=== PATIENT | female | born 1950 | race Caucasian/White ===

== ENCOUNTER 2017-08-03 06:36 | Inpatient (IN) ==
[~2017-08-03 06:36] MED LIST: ACETAMINOPHEN 500 MG TABLET PO ONE; DEXAMETHASONE 4 MG/ML INJECTION IVP ONE; FAMOTIDINE PB 20 MG/50 ML BAG IV ONE; LIDOCAINE 1% (10mg/ml) 2mL INJ PF SDV ID ONE; MELOXICAM 15 MG TABLET PO ONE; METOCLOPRAMIDE 10mg/2ml INJECTION IVP ONE; NOZIN NASAL SWAB NAS ONE; ONDANSETRON 4 MG/2 ML INJECTION IVP ONE; TRANEXAMIC ACID 1,000 MG in NS 100 ML IV ONE
[2017-08-03 06:50] VITALS: BMI 32.1
[2017-08-03] MEDS ORDERED: TRANEXAMIC ACID 1,000 MG in NS 100 ML IV ONE (07:00)
[2017-08-03] MEDS ORDERED: VANCOMYCIN 1,000 MG INJECTION ONE (07:18)
[2017-08-03] MEDS: LR 1,000 ML IV SCH ×2 (07:20→11:00)
[2017-08-03] MEDS ORDERED: EPINEPHrine PF 0.25 MG, BUPIVACAINE 0.25% PF 30 ML, MORPHINE SULFATE 15 MG, KETOROLAC I... OPSITE ONE (08:00)
--- NOTE | 2017-08-03 08:01 | Anesthesia Preoperative Report ---
Anesthesia Preoperative Record - Date and Time Date: 08/03/17 Preoperative Diagnosis: Lt IGNACIO M16.12 Proposed Procedure: left total hip NPO Since Date: 08/02/17 NPO Since Time: 23:00 Allergies/Adverse Reactions: Allergies Allergy/AdvReac Type Severity Reaction Status Date / Time azithromycin Allergy Unknown Hives Verified 08/03/17 07:14 ALMONDS Allergy Unknown throat Uncoded 08/03/17 07:14 swells BEER Allergy Unknown hives, Uncoded 08/03/17 07:14 throat swelling - Vital Signs Vital Signs: Temperature 97.9 F 08/03/17 06:50 Pulse Rate 80 08/03/17 06:50 Respiratory Rate 18 08/03/17 06:50 Blood Pressure 149/78 H 08/03/17 06:50 Pulse Oximetry 97 08/03/17 06:50 Height and Weight: Height 5 ft 4 in Weight 84.9 kg Body Mass Index 32.1 - Medications Inpatient Medications: Current Medications Cefazolin Sodium (Kefzol) 2 g IVP PREOP ONE Stop: 08/03/17 08:31 Epinephrine HCl 0.25 mg/Bupivacaine HCl 30 ml/Morphine Sulfate 15 mg/Ketorolac Tromethamine 60 mg/Sodium Chloride 65.25 mls @ 0 mls/hr OPSITE INTRAOP ONE; Per Protocol PRN Reason: Protocol Stop: 08/03/17 08:01 Lactated Ringer's (Lactated Ringers) 1,000 mls @ 50 mls/hr IV .Q20H ORLY Last Admin: 08/03/17 07:20 Dose: 50 mls/hr Sodium Chloride (Iv Flush) 10 - 80 ml IV PRN PRN PRN Reason: Flushing Home Medications: Home Medications Medication Instructions Recorded Confirmed Type Losartan/Hctz 100/12.5 [Hyzaar 1 tab PO DAILY #0 09/28/11 08/03/17 History 100/12.5] Pravastatin Sodium [Pravachol] 40 mg PO HS #0 09/28/11 08/03/17 History Aspirin [Aspirin EC] 81 mg PO DAILY #0 03/20/14 08/03/17 History Naproxen Sodium [Aleve] 440 mg PO DAILY #0 03/20/14 08/03/17 History Cardizem (diltiazem) 120 mg tablet 120 mg PO BID tab 06/19/17 08/03/17 History BuPROPion XL [Wellbutrin Xl] 300 mg PO DAILY 07/26/17 08/03/17 History EPINEPHrine Pen [Epipen] 1 dose INJ DAILY PRN 07/26/17 08/03/17 History Estradiol [Estradiol] 1 patch TD 2XW 07/26/17 08/03/17 History Fiberwell 5 gm PO DAILY 07/26/17 08/03/17 History Omeprazole [Prilosec] 1 cap PO ACB 07/26/17 08/03/17 History Is Patient on Beta Padmini?: No - Medical History Respiratory: DENIES: Asthma Cardiovascular: Reports: Hypertension DENIES: Arrhythmia, Coronary Artery Disease Gastrointestional: Reports: Gastroesophageal Reflux Disease (well controlled) Renal/Endocrine: DENIES: Diabetes Mellitus Type 2 Other History: DENIES: Anesthesia Reactions - Surgical History HEENT Surgeries: Reports: Nose Surgery (for fractured nose; septoplasty) GI Surgery/Treatments: Reports: Cholecystectomy, Colonoscopy (x2), EGD Reproductive Surgery/Treatment: Reports: Hysterectomy (vaginal) Anesthesia Reactions: None Hx Family Anesthesia Reaction: No History of Motion Sickness: No - Social History Smoking Status: Never smoker Hx Chewing Tobacco Use: No Second Hand Exposure: No Substance Use Type: does not use Alcohol Intake Frequency: does not drink - Pertinent Findings Laboratory: CBC and BMP 08/03/17 07:06 BMP 08/03/17 07:06 Sodium 143 Potassium 3.7 Chloride 109 H Carbon Dioxide 26 BUN 21.0 H Creatinine 0.9 Glucose 99 Calcium 9.0 EKG: Sinus Rhythm - Physical Exam Respiratory Exam: Present: lungs clear, bilateral breath sounds equal Cardiovascular Exam: Present: regular rate and rhythm - Airway Assessment Mallampati Score: II TMD: 3 Fingerbreadths Neck Extension: good Overall Assessment: no airway concerns - ASA ASA Score: 2 - Plan Anesthesia: General TIVA, Regional Block Regional/Trunk Block: Spinal - Discussion Discussion: Discussed risks/options/alternatives of anesthesia and questions answered. Patient consents. Nursing pain assessment noted. Present for Discussion: spouse Attestation Statement: Prior to the delivery of any anesthetic medication, I examined the patient, developed the plan, obtained the patient's consent and discussed the risk and benefits of the procedure with the patient/guardian. - Additional Information Seen by Anesthesia: Yes
[2017-08-03] MEDS ORDERED: MIDAZOLAM 2mg/2ml INJECTION ONE (08:11)
[2017-08-03] MEDS ORDERED: CEFAZOLIN 1 G INJECTION IVP ONE (08:30)
[2017-08-03] MEDS ORDERED: VANCOMYCIN 1,000 MG INJECTION IAR ONE (09:44)
[2017-08-03] MEDS ORDERED: SALINE FLUSH 10ml SYRINGE ONE (10:27)
[2017-08-03] MEDS ORDERED: EPHEDRINE 50mg/ml INJECTION ONE (10:27)
[2017-08-03] MEDS ORDERED: PROPOFOL 20 ML ONE (10:50)
--- NOTE | 2017-08-03 11:00 | Operative Note ---
- Procedure Preoperative Diagnosis: Left hip primary degenerative joint disease Postoperative Diagnosis: Same as preoperative diagnosis. Surgeon: Lauren Walls MD Discharge Door Operator: Misael Bell Complications: None. Anesthesia: Spinal. Estimated Blood Loss: See Anesthesia Record. Fluids: Please see Anesthesia Record. Description of Procedure: Mrs. Nelson and her left hip were identified and marked in the preoperative holding area. She was brought back to the operating suite and spinal anesthetic was administered. She was then placed in a lateral decubitus position with her left hip up. The left lower extremity was prepped and draped in my normal sterile fashion. Timeout was performed. The Impulsiv robotic arm was used to assist with the surgery. A pelvic array was placed into the iliac crest through three 1 cm incisions. A direct superior approach was utilized. An approximately 12 cm incision was made in the skin and dissection carried down to the muscle fascia which was then split in line with skin incision. A checkpoint was placed in the greater trochanter. The short external rotators were identified and tagged and detached. A capsulotomy was performed and the hip dislocated. A femoral neck osteotomy was performed at the pre-templated level measuring down from the femoral head. The head was removed and acetabulum exposed. Labrum was removed. The acetabulum was then registered with the robot. The robotic arm was then used to ream with a 51 reamer. The robot then was again used to place a 52 Trident cup in 40 of tilt and 25 of anteversion. A liner was then placed. The proximal femur was exposed and prepared with a cookie cutter followed by reaming and broaching to a size 3. This did not give us enough offset so I broached up to a size 4. We trialed with a -5 head. This was good but just a touch short. After thorough irrigation a final Accolade 2 size 4 stem with 127 neck was placed. Leg length and offset were checked with the robot and were good. A final -2.5 ceramic head was placed and the hip reduced. Betadine solution was used to irrigate throughout the case. It was followed by normal saline irrigation. Joint cocktail was injected throughout soft tissue. The capsulotomy was repaired with Ethibond. Short external rotators were also repaired with Ethibond. 1 g of vancomycin powder was placed into the wound. The muscle fascia was then repaired with #1 Vicryl. I then left my placement assistant to close the subcutaneous tissue with 2-0 Vicryl followed by running 4-0 Monocryl skin followed by Dermabond and a sterile dressing. The patient with any placed back into supine position and taken to recovery room in the care of anesthesia.
[2017-08-03] MEDS: HYDROMORPHONE 2 MG/ML INJECTION IVP PRN ×2 (11:30→11:42)
[2017-08-03] MEDS ORDERED: ONDANSETRON 4 MG/2 ML INJECTION IVP ONE (11:36)
[2017-08-03] MEDS ORDERED: NAPROXEN 220 MG TABLET PO PRN (12:09)
[2017-08-03] MEDS ORDERED: LORazepam 1 MG TABLET PO PRN (12:09)
[2017-08-03] MEDS ORDERED: NOZIN NASAL SWAB NAS ONE (12:09)
[2017-08-03] MEDS ORDERED: DiphenhydrAMINE 50 MG/ML INJECTION IVP PRN (12:09)
[2017-08-03] MEDS ORDERED: ONDANSETRON 4 MG/2 ML INJECTION IVP PRN (12:09)
[2017-08-03] MEDS ORDERED: DiphenhydrAMINE 25 MG CAPSULE PO PRN (12:09)
[2017-08-03] MEDS ORDERED: NS 1,000 ML IV SCH (12:09)
--- NOTE | 2017-08-03 12:09 | XRay Report ---
EXAM: XR pelvis w/ 1 view LT hip HISTORY: postoperative image TECHNIQUE: AP view of the pelvis was obtained along with crosstable lateral view of the left hip ENCOUNTER: Subsequent COMPARISON: Prior left hip series performed 06/19/2017 FINDINGS: There is been interval left total hip arthroplasty. The orthopedic hardware appears to be in good position showing no loosening or failure. There is subcutaneous emphysema in the soft tissues about the left hip which appears postsurgical in etiology. Moderate degenerative changes are seen at the right hip joint and pubic symphysis. Osseous structures show no acute fractures or focal destructive lesions. IMPRESSION: 1. Interval left total hip arthroplasty. 2. No acute bony trauma 3. Postsurgical subcutaneous emphysema over the left hip soft tissues. .
--- NOTE | 2017-08-03 13:28 | Anesthesia Postoperative Note ---
- Date and Time Date: 08/03/17 Time: 12:00 - Status Patient Participated in Evaluation: Patient Participated in Person Vital Signs: Temperature 95.3 F L 08/03/17 12:43 Pulse Rate 83 08/03/17 12:43 Respiratory Rate 14 08/03/17 12:43 Blood Pressure 124/76 08/03/17 12:43 Pulse Oximetry 95 08/03/17 12:43 Respiratory Function: Airway Patent Cardiovascular Function: Regular Pulse EKG: Sinus Rhythm Mental Status: Alert and Oriented Pain Intensity: 0 Hydration: IV Infusing Complications During Recover: None Apparent - Follow-Up Instructions Instructions: Per Surgeon
[2017-08-03] MEDS: ACETAMINOPHEN 325 MG TABLET PO SCH ×3 (14:38→21:17)
[2017-08-03] MEDS: TRAMADOL 50 MG TABLET PO PRN ×2 (14:38→18:29)
[2017-08-03] MEDS: NOZIN NASAL SWAB NAS SCH ×2 (14:38→21:18)
[2017-08-03] MEDS ORDERED: DEXAMETHASONE 4 MG/ML INJECTION IVP SCH (17:00)
[2017-08-03] MEDS: DEXAMETHASONE INJ 10 MG in NS 50 ML IV SCH (18:58)
[2017-08-03] MEDS: CEFAZOLIN 2 G in NS 100 ML IV SCH (19:20)
[2017-08-03] MEDS ORDERED: SALINE FLUSH 10ml SYRINGE IV PRN (20:17)
[2017-08-03] MEDS ORDERED: SENNOSIDES 8.6 MG TABLET PO SCH (21:00)
[2017-08-03] MEDS ORDERED: PRAVASTATIN 40 MG TABLET PO SCH (21:00)
[2017-08-03] MEDS: DiltiaZEM IR 60 MG TABLET PO SCH (21:16)
[2017-08-03] MEDS: ASPIRIN *EC* 81 MG TABLET PO SCH (21:17)
[2017-08-03] MEDS: DOCUSATE SODIUM 100 MG CAPSULE PO SCH (21:17)
[2017-08-04] MEDS: TRAMADOL 50 MG TABLET PO PRN (00:48)
[2017-08-04] MEDS: DEXAMETHASONE INJ 10 MG in NS 50 ML IV SCH (02:00)
[2017-08-04] MEDS: CEFAZOLIN 2 G in NS 100 ML IV SCH (02:36)
[2017-08-04 05:33] VITALS: RESP 16
[2017-08-04] MEDS ORDERED: OMEPRAZOLE 20 MG CAPSULE PO SCH (06:30)
[2017-08-04 07:51] VITALS: BP 148/73; PULSE 81; TEMP 96.6; O2SAT 97
[2017-08-04] MEDS: DiltiaZEM IR 60 MG TABLET PO SCH (08:29)
[2017-08-04] MEDS: NOZIN NASAL SWAB NAS SCH ×2 (08:30→15:52)
[2017-08-04] MEDS: ASPIRIN *EC* 81 MG TABLET PO SCH (08:31)
[2017-08-04] MEDS: ACETAMINOPHEN 325 MG TABLET PO SCH ×2 (08:31→15:52)
[2017-08-04] MEDS: DOCUSATE SODIUM 100 MG CAPSULE PO SCH (08:32)
[2017-08-04] MEDS ORDERED: POLYETHYL GLYCOL 3350 17gm PACKET PO SCH (09:00)
[2017-08-04] MEDS ORDERED: LOSARTAN/HCTZ 100/12.5mg TABLET PO SCH (09:00)
[2017-08-04] MEDS ORDERED: BuPROPion XL 300mg (24HR) TABLET PO SCH (09:00)
--- NOTE | 2017-08-04 09:11 | Orthopedic Progress Note ---
Date: Subjective/Severity of Illness: Doing well, no complaints. Denies CP, SOB or numbness. Orthopedic Objective PO Vital signs: Temperature 96.6 F L 08/04/17 07:50 Pulse Rate 81 08/04/17 07:50 Respiratory Rate 16 08/04/17 07:50 Blood Pressure 148/73 H 08/04/17 07:50 Pulse Oximetry 97 08/04/17 07:50 Height and Weight: Height 5 ft 4 in Weight 194 lb 10.691 oz Body Mass Index 32.1 - Constitutional General Appearance: Present: alert, orientated x3, no acute distress - Respiratory Exam Present: non-labored - Cardiovascular Exam Present: pedal pulses intact Capillary Refill: < 2-3 Seconds - Abdominal Exam Absent: tenderness - Extremities Exam Extremities: Present: pulses intact. Absent: calf tenderness - Hip Exam Hip Exam: Present: IR-limited, ER- limited. Absent: unequal leg length, abnormal rotation - Surgical Site Incision: Mepilex dressing intact, dressing intact - Integumentary Exam Present: pink, warm, dry - Lymphatic Lymphatic: Absent: lymphedema - Neurological Exam Present: intact to light touch - Psychiatric Exam Present: alert, oriented, normal affect - Labs Result Diagrams: 08/04/17 04:39 08/04/17 04:39 Abnormal lab results 08/04/17 08/04/17 Range/Units 04:39 04:39 WBC 14.0 H (4.5-11.0) T/MM3 RBC 3.69 L (4.00-5.20) M/MM3 Hgb 11.4 L (12-16) GM/DL Hct 34.4 L (36-46) % Chloride 110 H (98-107) MEQ/L Glucose 143 H (65-110) MG/DL H & H 08/04/17 Range/Units 04:39 Hgb 11.4 L (12-16) GM/DL Hct 34.4 L (36-46) % Orthopedic Assessment and Plan (1) Primary osteoarthritis of left hip Status: Acute Assessment and Plan: PT/OT for mobilization continue pain control and bowel management ASA for DVT prevention leukocytosis due stress response, afebrile. - Anticoagulation Therapy Anticoagulation: ASA 81 mg PO BID x6 weeks Hospital Course Summary Disclaimer: The visit summary below is not to be considered part of the above Progress Note.
[2017-08-04] MEDS ORDERED: SENNOSIDES 8.6 MG TABLET PO PRN (11:07)
--- NOTE | 2017-08-04 15:38 | Discharge Summary ---
Orthopedic Discharge Info Date of admission: 08/03/17 06:36 Primary care physician: Majo Azul DO Attending Physician: Jesus Walls MD Consults: 08/03/17 06:58 Consult to Anesthesiology [CONS] Routine Consulting Provider: SHELBY March Reason For Exam: Preoperative Assessment 08/03/17 12:09 Case Management Consult [CONS] Routine Reason For Exam: Discharge Planning DME-Walker [CONS] Routine Height: 5 ft 4 in Weight: 187 lb 2.759 oz Comment: change dressing in 2 weeks Total Joint Outpatient Therapy [CONS] Routine Comment: change dressing in 2 weeks - Discharge Diagnosis (1) Primary osteoarthritis of left hip Status: Acute - Procedures Procedures: Left IGNACIO - Laboratory Result Diagrams: 08/04/17 04:39 08/04/17 04:39 Laboratory: Abnormal lab results 08/04/17 08/04/17 Range/Units 04:39 04:39 WBC 14.0 H (4.5-11.0) T/MM3 RBC 3.69 L (4.00-5.20) M/MM3 Hgb 11.4 L (12-16) GM/DL Hct 34.4 L (36-46) % Chloride 110 H (98-107) MEQ/L Glucose 143 H (65-110) MG/DL H & H 08/04/17 Range/Units 04:39 Hgb 11.4 L (12-16) GM/DL Hct 34.4 L (36-46) % Orthopedic Discharge HPI - HPI Comments This patient was admitted for elective surgical tx of end stage degenerative joint disease that failed to respond to conservative treatment. Further details of this is found in the admission H&P. Orthopedic Hospital Course Hospital course: 08/04/17 15:35 After appropriate preoperative clearance and signing of operative consent, the patient was given IV antibiotics, according to orthopedic protocol. The patient was taken to the operating room and underwent elective joint arthroplasty. Following surgery, antibiotics were discontinued less than 24 hours according to joint protocol. Appropriate anticoagulants were initiated and SCDs added for DVT prevention. The dressing was clean, dry, and intact. Pain control was obtained via multimodal approach. Bowel motivation addressed with scheduled and PRN medications. Early mobilization was initiated through PT services. Discharge arrangements made by a collaborative effort between the patient and Case Management. Follow-up is scheduled in 2-3 weeks. Discharge instructions given by orthopedic providers and nursing staff at discharge. Discharge condition was good. Ongoing care required?: No Discharge Plan - Med Rec/Dispo Referrals/Follow Up: Jesus Walls MD [Physician] - 08/28/17 1:15 pm Geovany Instructions: [facility] Postop Instructions Additional Instructions: [facility] ON 08/08/2017 AT 2:00PM FOR PHYSICAL THERAPY FOR OUTPATIENT PHYSICAL THERAPY. PHONE [phone]. Prescriptions: New Aspirin *EC* [Ecotrin] 81 mg PO BID #84 tab Naproxen [Aleve] 440 mg PO BID PRN #60 tab PRN Reason: Pain Tramadol [Ultram] 50 - 100 mg PO Q6H PRN #60 tab PRN Reason: Pain Acetaminophen [Tylenol] 650 mg PO QID #100 tab Continue Losartan/Hctz 100/12.5 [Hyzaar 100/12.5] 1 tab PO DAILY #0 Omeprazole [Prilosec] 1 cap PO ACB Estradiol 1 patch TD 2XW EPINEPHrine Pen [Epipen] 1 dose INJ DAILY PRN PRN Reason: Allergic Reaction BuPROPion XL [Wellbutrin Xl] 300 mg PO DAILY Fiberwell 5 gm PO DAILY Pravastatin Sodium [Pravachol] 40 mg PO HS #0 Cardizem (diltiazem) 120 mg tablet 120 mg PO BID tab Discontinued Naproxen Sodium [Aleve] 440 mg PO DAILY #0 Aspirin [Aspirin EC] 81 mg PO DAILY #0 - Disposition 01 Discharged Home, Self-Care
[2017-08-05] MEDS ORDERED: BISACODYL 10 MG SUPPOSITORY RECTALLY SCH (20:00)
== END 2017-08-04 17:00 | disposition home or self-care (01) | DRG 470 ==
LOC: SRG 06:36
PROVIDERS: ADMIT Orthopaedic Surgery; ATTEND Orthopaedic Surgery